=== PATIENT | male | born 1960 | race Caucasian/White ===

== ENCOUNTER → 2019-05-13 13:47 | Outpatient (CLI) | payer BC, SELFPAY ==
[2019-05-13 14:34] LABS: Basophils % 0.6 % (0.1-2.0); Eosinophils # 0.1 K/mm3 (0.0-0.4); Eosinophils % 1.1 % (0.1-12.0); Hematocrit 37.3 % (42.0-52.0); Hemoglobin 11.8 g/dL (14.1-18.0); Lymphocytes # 0.5 K/mm3 (0.7-4.5); Lymphocytes % 8.1 % (10-50); Mean Corpuscular HGB Conc 31.7 g/dL (31.8-35.4); Mean Corpuscular Hemoglobin 33.4 pg (27.0-31.2); Mean Corpuscular Volume 105.4 fl (80-94); Mean Platelet Volume 9.5 fl (7.4-10.4); Monocytes # 0.4 K/mm3 (0.1-1.0); Monocytes % 5.8 % (1.7-9.3); Neutrophils # 5.4 K/mm3 (1.8-7.8); Neutrophils % 84.5 % (37.0-80.0); Platelet Count 134 K/mm3 (142-424); Red Blood Count 3.54 M/mm3 (4.60-6.20); Red Cell Distribution Width 15.5 % (11.5-17.5); White Blood Count 6.4 K/mm3 (4.8-10.8)
[2019-05-13 14:58] LABS: Alanine Aminotransferase 140 U/L (12-78); Albumin Level 3.1 gm/dL (3.4-5.0); Albumin/Globulin Ratio 1.1 (1.1-1.8); Alkaline Phosphatase 469 U/L (46-116); Anion Gap 17.1 mEq/L (5-15); Aspartate Amino Transferase 43 U/L (15-37); Blood Urea Nitrogen 11 mg/dL (7-18); Calcium 8.6 mg/dL (8.5-10.1); Carbon Dioxide 25 mmol/L (21.0-32.0); Chloride 89 mmol/L (98-107); Chol/HDL Ratio 16.9 (1-3.5); Cholesterol 254 mg/dL (140-200); Creatinine,Serum 1.21 mg/dL (0.70-1.30); Estimated Glomerular Filt Rate 62 ml/min (>60); Free T4 (Free Thyroxine) 1.07 ng/dl (0.76-1.46); GFR (African American) 75 ML/MIN (>60); Globulin 2.7 gm/dl (1.3-3.2); HDL Cholesterol 15 mg/dL (27-67); Potassium 4.1 mmoL/L (3.5-5.1); Sodium 127 mmol/L (136-145); Thyroid Stimulating Hormone 3.88 uIU/ml (0.358-3.740); Total Protein,Serum 5.8 gm/dL (6.4-8.2)
[2019-05-13 15:02] LABS: Triglycerides 1125 mg/dL (30-200)
[2019-05-13 15:04] LABS: Glucose 639 mg/dL (74-106)
[2019-05-13 15:53] LABS: Hemoglobin A1C 13.3 % (0.0-7.0)
[2019-05-13 15:56] LABS: Lipase 40 u/L (73-393)
[2019-05-15 07:19] LABS: Vitamin D 25 Hydroxy 17.9 ng/mL (30.0-100.0)
[2019-05-15 08:14] LABS: Hep A Ab, IgM Negative (Negative); Hep A Ab, Total Negative (Negative); Hep B Core Ab, Total Negative (Negative)
[2019-05-15 11:53] LABS: Hep B Surface Ab, Qual Non Reactive (.); Hepatitis B Surface Antigen Negative (Negative); PSA, Free 0.07 ng/mL; Prostate Specific Ag 0.3 ng/mL (0.0-4.0)
== END ==
PROVIDERS: Visit Provider Emergency Medicine
DX: E11.9 Type 2 diabetes mellitus without complications (principal); J44.9 Chronic obstructive pulmonary disease, unspecified; K85.90 Acute pancreatitis without necrosis or infection, unspecified; K86.3 Pseudocyst of pancreas; R60.0 Localized edema; I10 Essential (primary) hypertension; R74.8 Abnormal levels of other serum enzymes; Z79.84 Long term (current) use of oral hypoglycemic drugs
CPT/HCPCS: 80053; 80061; 82652; 83036; 83690; 84153; 84154; 84439; 84443; 85025; 86704; 86706; 86708; 87340

== ENCOUNTER → 2019-05-28 12:07 | Outpatient (CLI) | payer BC, SELFPAY ==
[2019-05-28 13:00] VITALS: PULSE 68; PULSE 70
== END ==
PROVIDERS: PCP Emergency Medicine; Visit Provider Emergency Medicine
DX: J44.9 Chronic obstructive pulmonary disease, unspecified (principal)
CPT/HCPCS: 94060; 94618; 94640; 94726; 94729

== ENCOUNTER → 2019-05-29 14:42 | Outpatient (CLI) | payer BC, SELFPAY ==
--- NOTE | 2019-05-29 14:49 | CA_ITS ---
APPROVED REPORT EXAM: Comprehensive 2D, Doppler, and color-flow Echocardiogram Product Development Engineer: Kim Alfonso RDCS Ht: 5 ft 10 in Wt: 113lbs BSA: 1.64 BP: 106/66 mmHg Indications: Murmur, Diabetes,Smoker,GERD 2D Dimensions LVOT 1.80 cm (M/F) 1.5-2.5 M-Mode Dimensions RVDd 1.90 cm (0.9-2.6) LA Diam 1.60 cm (1.9-4.0) LVDd 4.90 cm (3.5-5.7) Ao Diam 3.60 cm (2.0-3.7) LVDs 3.60 cm (3.5-5.7) AV Cusp 2.20 cm (1.5-2.6) IVSd 0.60 cm (0.6-1.1) PWd 0.60 cm (0.6-1.1) EF (Teich) 51.90% FS 26.50% EDV (Teich) 113.00 mL ESV (Teich) 54.40 mL LV Diastology E/A Ratio 1.1 MED E' 10.10 (< 7 cm/sec) E'/MED E' Ratio 5.80 (>14) LAT E' 13.20 (<10 cm/sec) E/LAT E' Ratio 4.40 (>14) Mitral Valve MV E Max Paddy. 58.70 (40-130 cm/s) MV A Velocity 54.80 (40-130 cm/s) E/A Ratio 1.10 Tricuspid Valve TR P. Velocity 266.00 cm/s RAP Estimate 10.00 mmHg RVSP 38.00 mmHg Left Ventricle Left atrium is normal size, left ventricle is normal size, there is no concentric left ventricular hypertrophy, visually estimated ejection fraction 55% with no regional wall motion abnormality, diastolic parameters are within normal range. Right Ventricle Right atrium and right ventricular normal size and contractility. Aortic Valve Aortic valve is grossly normal. There is no aortic stenosis aortic insufficiency. Mitral Valve Mitral valve is grossly normal, there is no mitral stenosis, there is mild mitral regurgitation. Tricuspid Valve Tricuspid valve is grossly normal, there is no tricuspid stenosis, there is mild tricuspid regurgitation, tricuspid regurgitation jet velocity is inadequate for calculation of the right ventricular systolic pressure. Pulmonic Valve Pulmonic valve is poorly visualized. Great Vessels Aortic root is normal size. Pericardium No significant pericardial effusion noted. Conclusion 1. Normal left ventricular size, preserved left ventricular systolic function, visually estimated ejection fraction 55% with no regional wall motion abnormality. Diastolic parameters are within normal range. 2. Mild mitral and tricuspid regurgitation 3. No significant pericardial effusion noted. Electronically signed by : Rosales Nj, 05/30/2019 15:09:52
--- NOTE | 2019-05-29 15:13 | XR_ITS ---
PROCEDURE: XR CHEST 2V CLINICAL HISTORY: COPD COPD, smoker, shortness of breath COMPARISON: No exams were available for comparison FINDINGS: The cardiomediastinal silhouette and pulmonary vascularity are within normal limits. There is mild hyperinflation. Calcified granuloma is present in the right middle lobe. No lobar consolidation or collapse. No acute bony findings. IMPRESSION: Mild hyperinflation otherwise negative Dictated by: Kwan Frankel MD 05/29/2019 17:29 Electronically signed by Kwan Frankel MD in [place] 05/29/2019 17:29
== END ==
PROVIDERS: PCP Emergency Medicine; Visit Provider Emergency Medicine
DX: R01.1 Cardiac murmur, unspecified (principal); J44.9 Chronic obstructive pulmonary disease, unspecified
CPT/HCPCS: 71046; 93306

== ENCOUNTER → 2019-06-11 13:32 | Outpatient (CLI) | payer BC, SELFPAY ==
[2019-06-11 14:17] LABS: Alanine Aminotransferase 130 U/L (12-78); Albumin Level 3.7 gm/dL (3.4-5.0); Albumin/Globulin Ratio 1.4 (1.1-1.8); Alkaline Phosphatase 325 U/L (46-116); Anion Gap 13.4 mEq/L (5-15); Aspartate Amino Transferase 72 U/L (15-37); Bilirubin,Total 1.1 mg/dL (0.2-1.0); Blood Urea Nitrogen 6 mg/dL (7-18); Calcium 9.5 mg/dL (8.5-10.1); Carbon Dioxide 29 mmol/L (21.0-32.0); Chloride 97 mmol/L (98-107); Creatinine,Serum 1.06 mg/dL (0.70-1.30); Estimated Glomerular Filt Rate 72 ml/min (>60); GFR (African American) 87 ML/MIN (>60); Globulin 2.6 gm/dl (1.3-3.2); Glucose 382 mg/dL (74-106); Potassium 5.4 mmoL/L (3.5-5.1); Sodium 134 mmol/L (136-145); Total Protein,Serum 6.3 gm/dL (6.4-8.2)
== END ==
PROVIDERS: Visit Provider Emergency Medicine
DX: E11.9 Type 2 diabetes mellitus without complications (principal); Z79.84 Long term (current) use of oral hypoglycemic drugs
CPT/HCPCS: 80053

== ENCOUNTER → 2019-06-13 09:09 | Outpatient (CLI) | payer BC, SELFPAY ==
[2019-06-13 10:31] LABS: Alanine Aminotransferase 119 U/L (12-78); Albumin Level 3.2 gm/dL (3.4-5.0); Albumin/Globulin Ratio 1.3 (1.1-1.8); Alkaline Phosphatase 251 U/L (46-116); Anion Gap 13.1 mEq/L (5-15); Aspartate Amino Transferase 67 U/L (15-37); Bilirubin,Total 0.5 mg/dL (0.2-1.0); Blood Urea Nitrogen 6 mg/dL (7-18); Calcium 8.7 mg/dL (8.5-10.1); Carbon Dioxide 27 mmol/L (21.0-32.0); Chloride 97 mmol/L (98-107); Creatinine,Serum 0.89 mg/dL (0.70-1.30); Estimated Glomerular Filt Rate 88 ml/min (>60); GFR (African American) 107 ML/MIN (>60); Globulin 2.5 gm/dl (1.3-3.2); Glucose 357 mg/dL (74-106); Potassium 4.1 mmoL/L (3.5-5.1); Sodium 133 mmol/L (136-145); Total Protein,Serum 5.7 gm/dL (6.4-8.2)
== END ==
PROVIDERS: Visit Provider Nurse Practitioner Family
DX: R74.8 Abnormal levels of other serum enzymes (principal)
CPT/HCPCS: 36415; 80053; 87522

== ENCOUNTER → 2019-06-26 08:55 | Outpatient (CLI) | payer BC, SELFPAY | PROVIDERS: PCP Emergency Medicine; Visit Provider Emergency Medicine | DX: Z71.3 Dietary counseling and surveillance (principal); E11.9 Type 2 diabetes mellitus without complications | CPT/HCPCS: 97802 ==

== ENCOUNTER → 2019-07-02 13:56 | Outpatient (CLI) | payer BC, SELFPAY | PROVIDERS: Visit Provider Nurse Practitioner Family | DX: E11.9 Type 2 diabetes mellitus without complications (principal); Z79.84 Long term (current) use of oral hypoglycemic drugs | CPT/HCPCS: 84681 ==

== ENCOUNTER → 2019-09-26 13:44 | Outpatient (CLI) | payer BC, SELFPAY ==
[2019-09-26 15:19] LABS: Basophils # 0.1 K/mm3 (0-0.2); Basophils % 0.8 % (0.1-2.0); Eosinophils # 0.2 K/mm3 (0.0-0.4); Eosinophils % 1.9 % (0.1-12.0); Hematocrit 45.1 % (42.0-52.0); Lymphocytes % 12.4 % (10-50); Mean Corpuscular HGB Conc 31.1 g/dL (31.8-35.4); Mean Corpuscular Hemoglobin 31.1 pg (27.0-31.2); Mean Corpuscular Volume 99.9 fl (80-94); Mean Platelet Volume 10.1 fl (7.4-10.4); Monocytes # 0.5 K/mm3 (0.1-1.0); Monocytes % 5.9 % (1.7-9.3); Neutrophils # 6.1 K/mm3 (1.8-7.8); Neutrophils % 79.1 % (37.0-80.0); Platelet Count 167 K/mm3 (142-424); Red Blood Count 4.51 M/mm3 (4.60-6.20); Red Cell Distribution Width 13.5 % (11.5-17.5); White Blood Count 7.7 K/mm3 (4.8-10.8)
[2019-09-26 15:48] LABS: Alanine Aminotransferase 72 U/L (12-78); Albumin Level 4.2 gm/dL (3.4-5.0); Albumin/Globulin Ratio 1.7 (1.1-1.8); Alkaline Phosphatase 203 U/L (46-116); Anion Gap 11.8 mEq/L (5-15); Aspartate Amino Transferase 26 U/L (15-37); Bilirubin,Total 0.4 mg/dL (0.2-1.0); Blood Urea Nitrogen 10 mg/dL (7-18); Calcium 9.6 mg/dL (8.5-10.1); Carbon Dioxide 29 mmol/L (21.0-32.0); Chloride 102 mmol/L (98-107); Chol/HDL Ratio 4.5 (1-3.5); Cholesterol 141 mg/dL (140-200); Creatinine,Serum 0.93 mg/dL (0.70-1.30); Estimated Glomerular Filt Rate 84 ml/min (>60); GFR (African American) 101 ML/MIN (>60); Globulin 2.5 gm/dl (1.3-3.2); Glucose 261 mg/dL (74-106); HDL Cholesterol 31 mg/dL (27-67); Hemoglobin A1C 11.4 % (0.0-7.0); LDL Cholesterol 68 mg/dL (0-130); Potassium 4.8 mmoL/L (3.5-5.1); Sodium 138 mmol/L (136-145); T4 (Thyroxine) 6.5 ug/dl (4.7-13.3); Thyroid Stimulating Hormone 1.33 uIU/ml (0.358-3.740); Total Protein,Serum 6.7 gm/dL (6.4-8.2); Triglycerides 210 mg/dL (30-200); VLDL Cholesterol 42 mg/dL (0-40)
[2019-09-27 09:10] LABS: Creatinine, Urine 134.8 mg/dL (Not Estab.)
[2019-09-27 09:46] LABS: Vitamin D 25 Hydroxy 13.5 ng/mL (30.0-100.0)
== END ==
PROVIDERS: Visit Provider Nurse Practitioner Family
DX: E11.9 Type 2 diabetes mellitus without complications (principal); E55.9 Vitamin D deficiency, unspecified; Z79.899 Other long term (current) drug therapy; Z79.4 Long term (current) use of insulin
CPT/HCPCS: 80053; 80061; 82043; 82570; 82652; 83036; 84436; 84443; 85025

== ENCOUNTER → 2020-01-13 11:35 | Outpatient (CLI) | payer BC, SELFPAY ==
[2020-01-13 11:42] LABS: Adenovirus,PCR Not Detected (NotDetected); Bordetella Pertussis Not Detected (NotDetected); Chlamydophila Pneumoniae, PCR Not Detected (NotDetected); Coronavirus 19, PCR Not Detected (NotDetected); Coronavirus 229E Not Detected (NotDetected); Coronavirus NL63 Not Detected (NotDetected); Coronavirus OC43 Not Detected (NotDetected); Coronovirus HKU1,PCR Not Detected (NotDetected); Human Metapneumovirus Not Detected (NotDetected); Influenza A, PCR Not Detected (NotDetected); Influenza AH1, 2009 Not Detected (NotDetected); Influenza AH1, PCR Not Detected (NotDetected); Influenza AH3,PCR Not Detected (NotDetected); Influenza B, PCR Not Detected (NotDetected); Mycoplasma Pneumoniae, PCR Not Detected (NotDected); Parainfluenza 1, PCR Not Detected (NotDetected); Parainfluenza 2, PCR Not Detected (NotDetected); Parainfluenza 3, PCR Not Detected (NotDetected); Parainfluenza 4, PCR Not Detected (NotDetected); Respiratory Syncytial Virus Not Detected (NotDetected); Rhinovirus/Enterovirus Not Detected (NotDetected)
== END ==
PROVIDERS: Visit Provider Surgery
DX: Z01.818 Encounter for other preprocedural examination (principal)
CPT/HCPCS: 87581; 87633; 87798

== ENCOUNTER 2020-01-15 08:20 | Day surgery (SDC) | payer BC, SELFPAY ==
--- NOTE | 2020-01-12 09:44 | SUR.PREOP ---
01/12/2020 @ 0945--PHONE CALL MADE TO PATIENT. PATIENT UNDERSTANDS THAT LAB WORK AND COVID TESTING NEEDS TO BE COMPLETED @ 1100 ON 01/13/2020. PATIENT UNDERSTANDS IF LAB WORK AND COVID-19 TESTS ARE NOT COMPLETED BY 12PM ON THAT DATE, THE SURGERY SCHEDULED WILL BE CANCELLED AND RESCHEDULED FOR ANOTHER TIME.
[2020-01-15] VITALS (12 sets, daily range): BP systolic 112–207; BP diastolic 70–119; PULSE 60–89; RESP 18; TEMP 36.2–36.9; O2SAT 97–99; BMI 22.0
[2020-01-15 09:08] LABS: POC Glucose,Bedside 267 (70-110)
--- NOTE | 2020-01-15 10:18 | P.PCN_ITS ---
- Procedure: Date: 01/15/20 Procedure Performed:: Colonoscopy with polypectomy Indications:: Screening Weight loss (resolved) History of intermittent diarrhea Performing Provider:: Lee Mora MD Referring Provider:: . Sedation:: Monitored anesthesia care Procedure:: After informed consent was obtained the patient was taken to the endoscopy suite. Sedation ensued after the patient was transferred to the left lateral decubitus position. Pulse, blood pressure, and oxygen saturation were monitored throughout the procedure. Digital rectal exam revealed no significant abnormal ity. The colonoscope was placed in position. The entire colon was evaluated. The colonoscope was carefully removed and the patient was transferred to recovery in stable condition. Please see findings and specimens below for detail. Findings:: Bowel preparation moderate Significant lack of relaxation with particular effect on sigmoid colon Multiple complex polyps (see specimens) Hemorrhoidal cushions Specimens:: Pedunculated cecal polyp (cold snare) Right colon polyp Complex lobulated 8 mm sessile polyp of the distal right colon (cold snare) Recommendations:: Timing of repeat colonoscopy is pending pathology but will likely be in 1-2 years secondary to size/nature/number of polyps, moderate bowel preparation, and significant lack of relaxation. Complications:: No immediate Estimated blood obtained (mL): 1
--- NOTE | 2020-01-15 11:29 | HMH.ANESCL ---
[facility] Anesthesia Checklist - Patient Identification Patient Identification: Arm Band - Structural Data Admitted From: Home Planned Operative Procedure/s: colonoscopy Consent for Planned Operative Procedure(s) Verified: Yes Verified Documents: Surgical Consent, History and Physical - NPO Status Verified Time NPO: 00:00 - Additional verifications Anesthesia Reactions: No - Airway Assessment C-Spine Mobility Assessed: Yes TMJ Mobility Assessed: Yes Dentition: Edentulous - Neurological Assessment Level of Consciousness: Awake, Alert - Anesthesia Plan Anesthesia Risk discussed: Yes Anesthesia Plan: Verified ASA Class: III Anesthesia Type: MAC [facility] History I have reviewed the patient's past medical history: Yes Medical History: Reports:: Diabetes Mellitus Type 2, Gastroesophageal Reflux Disease(GERD), Hyperlipidemia, Hypertension Denies:: Cancer, Diabetes Mellitus Type 1, Internal Pacemaker, MRSA, Seizures *Have you ever received a pneumonia vaccine?: Yes *Have you received a flu vaccine this season?: Yes Other Medical History: Reports: Other Anesthesia experience/problems:: nac Other Surgeries: Yes: Cardiac Catheterization, Cholecystectomy, Colonoscopy, Hernia Repair, Other. No: Pacemaker Amputation: No Fractures: No - *Social History Smoking Status: Current every day smoker Tobacco Type: cigarettes # Packs/Day (cigarettes): 1 Alcohol Intake: never Alcohol Intake Frequency:: 3 or more drinks per day Substance Use Type: denies use *Occupational Status:: disabled Housing: house Household Members: friend(s) *Travel in the last 8 weeks: None Family Hx:: Cancer, Heart Attack, Coronary Artery Disease, Diabetes, Hypertension, Stroke
--- NOTE | 2020-01-15 12:07 | SUR.PHASEII ---
Notified Eric Ricardo CRNA that BP has decreased to pre-op level, ok with discharge. pt smiling and cooperlexvie, no C/O. Instructed to follow up with [facility] for BP check and to take meds when gets home. Pt verbalized understanding.
== END 2020-01-15 12:09 | disposition home or self-care (01) ==
LOC: OUTP 08:21
PROVIDERS: PCP Nurse Practitioner Family; Visit Provider Surgery
PROC: 0DJD8ZZ Inspection of Lower Intestinal Tract, Via Natural or Artificial Opening Endoscopic (ICD-10-PCS; CPT 45385; principal; 2020-01-15 09:30)
DX: D12.2 Benign neoplasm of ascending colon (principal); D12.0 Benign neoplasm of cecum; Z12.11 Encounter for screening for malignant neoplasm of colon; E11.9 Type 2 diabetes mellitus without complications; Z79.4 Long term (current) use of insulin; Z79.899 Other long term (current) drug therapy; Z88.8 Allergy status to other drugs, medicaments and biological substances
CPT/HCPCS: 45385; 82962

== ENCOUNTER → 2020-01-29 14:40 | Outpatient (CLI) | payer BC, SELFPAY ==
[2020-01-29 15:04] LABS: Basophils # 0.1 K/mm3 (0-0.2); Basophils % 1.2 % (0.1-2.0); Eosinophils % 0.3 % (0.1-12.0); Hematocrit 45.1 % (42.0-52.0); Hemoglobin 15.2 g/dL (14.1-18.0); Lymphocytes # 0.8 K/mm3 (0.7-4.5); Lymphocytes % 10.2 % (10-50); Mean Corpuscular HGB Conc 33.6 g/dL (31.8-35.4); Mean Corpuscular Hemoglobin 32.9 pg (27.0-31.2); Mean Corpuscular Volume 97.8 fl (80-94); Mean Platelet Volume 8.9 fl (7.4-10.4); Monocytes # 0.4 K/mm3 (0.1-1.0); Monocytes % 5.2 % (1.7-9.3); Neutrophils # 6.6 K/mm3 (1.8-7.8); Neutrophils % 83.1 % (37.0-80.0); Platelet Count 160 K/mm3 (142-424); Red Blood Count 4.61 M/mm3 (4.60-6.20); Red Cell Distribution Width 13.4 % (11.5-17.5); White Blood Count 7.9 K/mm3 (4.8-10.8)
[2020-01-29 15:13] LABS: Chloride 104 mmol/L (98-107); Sodium 138 mmol/L (136-145)
[2020-01-29 15:14] LABS: Potassium 4.4 mmoL/L (3.5-5.1)
[2020-01-29 15:16] LABS: Alanine Aminotransferase 41 U/L (12-78); Albumin Level 4.3 g/dl (3.5-5.0); Albumin/Globulin Ratio 1.7 (1.1-1.8); Alkaline Phosphatase 204 U/L (38-126); Anion Gap 13.4 mEq/L (5-15); Aspartate Amino Transferase 47 U/L (17-59); Blood Urea Nitrogen 10 mg/dl (9-20); Calcium 9.9 mg/dl (8.4-10.2); Carbon Dioxide 25 mmol/L (22.0-30.0); Cholesterol 105 mg/dl (140-200); Estimated Glomerular Filt Rate 87 ml/min (>60); GFR (African American) 105 ML/MIN (>60); Globulin 2.5 g/dL (1.3-3.2); Glucose 187 mg/dl (74-100); Total Protein,Serum 6.8 g/dl (6.3-8.2); Triglycerides 258 mg/dl (30-150); VLDL Cholesterol 52 mg/dL (0-40)
[2020-01-29 15:17] LABS: Chol/HDL Ratio 2.5 (1-3.5); HDL Cholesterol 42 mg/dl (40-60)
[2020-01-29 15:27] LABS: Direct LDL Cholesterol 50.51 mg/dL (100-129)
[2020-01-29 15:36] LABS: T4 (Thyroxine) 4.7 ug/dl (5.53-11.0)
[2020-01-29 15:44] LABS: Hemoglobin A1C 8.1 % (4.0-6.0)
[2020-01-29 15:49] LABS: Thyroid Stimulating Hormone 2.44 uIU/mL (0.465-4.68)
[2020-01-31 11:12] LABS: Vitamin D 25 Hydroxy 32.7 ng/mL (30.0-100.0)
== END ==
PROVIDERS: Visit Provider Nurse Practitioner Family
DX: I10 Essential (primary) hypertension (principal); E11.9 Type 2 diabetes mellitus without complications; Z79.4 Long term (current) use of insulin
CPT/HCPCS: 80053; 80061; 82652; 83036; 84436; 84443; 85025

== ENCOUNTER → 2020-02-06 12:02 | Outpatient (CLI) | payer BC, SELFPAY ==
--- NOTE | 2020-02-06 12:07 | XR_ITS ---
PROCEDURE: XR CHEST 2V CLINICAL HISTORY: elevated alk phos Smoker COMPARISON: XR CHEST 2V from 05/29/2019 FINDINGS: Cardiac size is upper limits of normal. No evidence of CHF. Calcified granuloma is present in the right lower lung zone. No lobar consolidation or collapse. No acute bony abnormalities. IMPRESSION: No acute findings. Dictated by: Kwan Frankel MD 02/06/2020 14:44 Electronically signed by Kwan Frankel MD in [place] 02/06/2020 14:44
== END ==
PROVIDERS: PCP Nurse Practitioner Family; Visit Provider Nurse Practitioner Family
DX: R74.8 Abnormal levels of other serum enzymes (principal)
CPT/HCPCS: 71046

== ENCOUNTER → 2021-02-04 13:42 | Outpatient (CLI) | payer BC, SELFPAY ==
[2021-02-04 13:54] LABS: Basophils % 0.9 % (0.1-2.0); Eosinophils % 0.6 % (0.1-12.0); Hematocrit 41.8 % (42.0-52.0); Hemoglobin 13.7 g/dL (14.1-18.0); Lymphocytes # 0.8 K/mm3 (0.7-4.5); Lymphocytes % 17.6 % (10-50); Mean Corpuscular HGB Conc 32.9 g/dL (31.8-35.4); Mean Corpuscular Hemoglobin 33.8 pg (27.0-31.2); Mean Corpuscular Volume 102.7 fl (80-94); Mean Platelet Volume 10.4 fl (7.4-10.4); Monocytes # 0.3 K/mm3 (0.1-1.0); Monocytes % 7.1 % (1.7-9.3); Neutrophils # 3.3 K/mm3 (1.8-7.8); Neutrophils % 73.9 % (37.0-80.0); Platelet Count 111 K/mm3 (142-424); Red Blood Count 4.07 M/mm3 (4.60-6.20); White Blood Count 4.4 K/mm3 (4.8-10.8)
[2021-02-04 14:06] LABS: Chloride 95 mmol/L (98-107); Sodium 134 mmol/L (136-145)
[2021-02-04 14:07] LABS: Potassium 4.5 mmoL/L (3.5-5.1)
[2021-02-04 14:09] LABS: Blood Urea Nitrogen 4 mg/dl (9-20); Estimated Glomerular Filt Rate 87 ml/min (>60); GFR (African American) 105 ML/MIN (>60)
[2021-02-04 14:10] LABS: Anion Gap 16.5 mEq/L (5-15); Carbon Dioxide 27 mmol/L (22.0-30.0)
[2021-02-04 14:19] LABS: Glucose 577 mg/dl (74-100)
[2021-02-04 14:58] LABS: Prostate Specific Ag Screen 0.7 ng/ml (0.0-4.0)
[2021-02-06 08:10] LABS: Testosterone,Total 407 ng/dL (264-916)
== END ==
PROVIDERS: Visit Provider Emergency Medicine
DX: E11.9 Type 2 diabetes mellitus without complications (principal); Z79.4 Long term (current) use of insulin; Z12.5 Encounter for screening for malignant neoplasm of prostate
CPT/HCPCS: 80048; 83036; 84403; 85025; G0103

== ENCOUNTER → 2021-12-15 07:35 | Outpatient (CLI) | payer BC, SELFPAY ==
--- NOTE | 2021-12-15 07:54 | XR_ITS ---
FINAL REPORT CLINICAL HISTORY: bilat knee pain FINDINGS: 3 views of the right knee were obtained. There is no acute fracture or dislocation. There is minimal sharpening of the tibial spines consistent with mild osteoarthritis. The joint spaces are preserved. There is no soft tissue abnormality. IMPRESSION: Mild osteoarthritis. Reviewed, Interpreted and Dictated by Anthony Wells MD Transcribed by Silvino Peters Authenticated by Anthony Wells MD on 12/15/2021 08:48:03 AM [facility]
--- NOTE | 2021-12-15 07:54 | XR_ITS ---
FINAL REPORT CLINICAL HISTORY: bilat knee pain FINDINGS: 3 views of the left knee were obtained. There is no acute fracture or dislocation. There is moderate sharpening of the tibial spines. There is mild narrowing of the medial compartment joint space. There is an ossific protuberance of the inferior aspect of the patella which may be due to sequela of old trauma or an exostosis. There is an ossific protuberance along the medial aspect of the medial tibial metaphysis. This measures 1.8 cm and is probably due to an exostosis. There is no soft tissue abnormality. 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 Reviewed, Interpreted and Dictated by Anthony Wells MD Transcribed by Silvino Peters Authenticated by Anthony Wells MD on 12/15/2021 10:30:30 AM [facility]
--- NOTE | 2021-12-15 08:35 | CT_ITS ---
FINAL REPORT TECHNIQUE: Axial images through the abdomen and pelvis were performed without contrast. This study was performed with techniques to keep radiation doses as low as reasonably achievable, (ALARA). Individualized dose reduction techniques using automated exposure control or adjustment of mA and/or kV according to the patient's size were employed. CLINICAL HISTORY: abd pain FINDINGS: Abdomen: There is calcified granuloma in the right lung base. The liver parenchyma is homogeneous. The gallbladder is absent. The spleen and adrenals are unremarkable. The pancreas has an abnormal appearance with extensive calcifications throughout. The pancreas is atrophic and the pancreatic duct is enlarged measuring up to 7 mm. There is a small nonobstructing stone in the right renal collecting system. Pelvis: The urinary bladder is unremarkable. The appendix is not visualized. There are multiple fluid-filled loops of small bowel. The bowel loops measure up to the upper limits of normal. There is a large amount of stool throughout the colon. The urinary bladder is distended. There is no pelvic mass or inflammation. IMPRESSION: Constipation. Nonobstructing right kidney stone. Changes of chronic pancreatitis. Urinary bladder distension. Reviewed, Interpreted and Dictated by Anthony Wells MD Transcribed by Eli Greco Authenticated by Anthony Wells MD on 12/15/2021 10:30:24 AM [facility]
== END ==
PROVIDERS: PCP Nurse Practitioner Family; Visit Provider Nurse Practitioner Family
DX: M25.561 Pain in right knee (principal); M25.562 Pain in left knee; R10.9 Unspecified abdominal pain
CPT/HCPCS: 73562; 74176

== ENCOUNTER → 2021-12-15 11:44 | Outpatient (CLI) | payer BC, SELFPAY ==
[2021-12-14 18:04] LABS: Basophils # 0.1 K/mm3 (0-0.2); Basophils % 0.9 % (0.1-2.0); Eosinophils % 0.6 % (0.1-12.0); Hematocrit 36.1 % (42.0-52.0); Hemoglobin 11.4 g/dL (14.1-18.0); Lymphocytes # 0.6 K/mm3 (0.7-4.5); Lymphocytes % 12.4 % (10-50); Mean Corpuscular HGB Conc 31.6 g/dL (31.8-35.4); Mean Corpuscular Hemoglobin 32.7 pg (27.0-31.2); Mean Corpuscular Volume 103.6 fl (80-94); Mean Platelet Volume 9.2 fl (7.4-10.4); Monocytes # 0.3 K/mm3 (0.1-1.0); Monocytes % 5.5 % (1.7-9.3); Neutrophils # 4.2 K/mm3 (1.8-7.8); Neutrophils % 80.5 % (37.0-80.0); Platelet Count 125 K/mm3 (142-424); Red Blood Count 3.49 M/mm3 (4.60-6.20); Red Cell Distribution Width 13.6 % (11.5-17.5); White Blood Count 5.2 K/mm3 (4.8-10.8)
[2021-12-14 18:10] LABS: Alanine Aminotransferase 155 U/L (12-78); Albumin Level 3.1 g/dl (3.5-5.0); Albumin/Globulin Ratio 1.4 (1.1-1.8); Alkaline Phosphatase 312 U/L (38-126); Amylase 47 U/L (30-110); Anion Gap 10.2 mEq/L (5-15); Aspartate Amino Transferase 124 U/L (17-59); Blood Urea Nitrogen 10 mg/dl (9-20); Calcium 7.9 mg/dl (8.4-10.2); Carbon Dioxide 30 mmol/L (22.0-30.0); Chloride 89 mmol/L (98-107); Chol/HDL Ratio 3.4 (1-3.5); Cholesterol 62 mg/dl (140-200); Estimated Glomerular Filt Rate 138 ml/min (>60); GFR (African American) 167 ML/MIN (>60); Globulin 2.2 g/dL (1.3-3.2); HDL Cholesterol 18 mg/dl (40-60); Potassium 4.2 mmoL/L (3.5-5.1); Sodium 125 mmol/L (136-145); Total Protein,Serum 5.3 g/dl (6.3-8.2); Triglycerides 187 mg/dl (30-150); VLDL Cholesterol 37 mg/dL (0-40)
[2021-12-14 18:26] LABS: 25-OH Vitamin D, Total < 12.8 ng/mL (30-100)
[2021-12-14 18:27] LABS: T4 (Thyroxine) 5.3 ug/dl (5.53-11.0)
[2021-12-14 18:33] LABS: Direct LDL Cholesterol < 30.00 mg/dL (100-129); Glucose 493 mg/dl (74-100); Lipase < 10 U/L (23-300)
[2021-12-14 18:41] LABS: Thyroid Stimulating Hormone 2.09 uIU/mL (0.465-4.68)
[2021-12-14 19:27] LABS: Hemoglobin A1C > 14.0 % (4.0-6.0)
[2021-12-16 10:32] LABS: C-Peptide 0.4 ng/mL (1.1-4.4)
== END ==
PROVIDERS: PCP Nurse Practitioner Family; Visit Provider Nurse Practitioner Family
DX: E10.9 Type 1 diabetes mellitus without complications (principal); R10.9 Unspecified abdominal pain; E55.9 Vitamin D deficiency, unspecified; Z79.4 Long term (current) use of insulin; Z79.899 Other long term (current) drug therapy
CPT/HCPCS: 80053; 80061; 82043; 82150; 82306; 83036; 83690; 84436; 84443; 84681; 85025

== ENCOUNTER → 2021-12-19 12:41 | Outpatient (CLI) | payer BC, SELFPAY ==
[2021-12-19 14:02] LABS: Basophils # 0.1 K/mm3 (0-0.2); Basophils % 1.9 % (0.1-2.0); Eosinophils % 0.4 % (0.1-12.0); Hematocrit 37.3 % (42.0-52.0); Hemoglobin 11.8 g/dL (14.1-18.0); Lymphocytes # 0.5 K/mm3 (0.7-4.5); Mean Corpuscular HGB Conc 31.7 g/dL (31.8-35.4); Mean Corpuscular Hemoglobin 32.6 pg (27.0-31.2); Mean Corpuscular Volume 102.6 fl (80-94); Mean Platelet Volume 9.3 fl (7.4-10.4); Monocytes # 0.3 K/mm3 (0.1-1.0); Monocytes % 5.4 % (1.7-9.3); Neutrophils # 4.9 K/mm3 (1.8-7.8); Neutrophils % 83.3 % (37.0-80.0); Platelet Count 114 K/mm3 (142-424); Red Blood Count 3.64 M/mm3 (4.60-6.20); Red Cell Distribution Width 14.3 % (11.5-17.5); White Blood Count 5.9 K/mm3 (4.8-10.8)
[2021-12-19 14:49] LABS: Anion Gap 10.1 mEq/L (5-15); Blood Urea Nitrogen 9 mg/dl (9-20); Calcium 8.5 mg/dl (8.4-10.2); Carbon Dioxide 35 mmol/L (22.0-30.0); Chloride 92 mmol/L (98-107); Estimated Glomerular Filt Rate 138 ml/min (>60); GFR (African American) 167 ML/MIN (>60); Glucose 383 mg/dl (74-100); Potassium 5.1 mmoL/L (3.5-5.1); Sodium 132 mmol/L (136-145)
== END ==
PROVIDERS: PCP Nurse Practitioner Family; Visit Provider Physician Assistant
DX: Z01.812 Encounter for preprocedural laboratory examination (principal); Z11.52 Encounter for screening for COVID-19; R06.00 Dyspnea, unspecified; R07.9 Chest pain, unspecified; R20.0 Anesthesia of skin; R53.83 Other fatigue; R60.0 Localized edema
CPT/HCPCS: 36415; 80048; 85025; C9803; U0003; U0005

== ENCOUNTER 2021-12-20 09:01 | Day surgery (SDC) | payer BC, SELFPAY ==
[2021-12-20] VITALS (11 sets, daily range): BP systolic 108–159; BP diastolic 59–74; PULSE 58–81; RESP 18–20; TEMP 36.6; O2SAT 94–98; BMI 18.2
--- NOTE | 2021-12-20 | IR_ITS ---
APPROVED REPORT Patient Location: Outpatient PROCEDURES Left heart catheterization Left ventriculogram Selective coronary angiogram INDICATION High pretest likelihood for coronary artery disease, Class IV angina pectoris, Insulin requiring diabetes accompanied by an extensive tobacco usage. High pretest likelihood for three-vessel coronary artery disease Informed consent was obtained prior to the procedure. COMPLICATIONS None Estimated Blood Loss: Less than 10 mls TECHNIQUE One percent lidocaine used to anesthetize the right anterior aspect of the wrist. The right radial artery was accessed via the Seldinger technique. A 6 Greek sheath was placed in the right radial artery. 2.5 mg of verapamil, 800 mcg of nitroglycerin, 1mg Lidocaine and 5000 U Heparin were given through the arterial sheath. The papa catheter was also used to perform left heart catheterization, left ventriculogram and selective coronary angiogram. At the end of the procedure the sheath was removed good hemostasis was achieved using Traclet band, patient was transferred to the postop holding area in stable condition. ANGIOGRAPHIC RESULTS The left main artery Normal The left anterior descending artery Has mild proximal 20% stenosis The circumflex artery Dominant normal The right coronary artery Nondominant normal The BROCK ventriculogram reveals Normal 65% The left ventricular end-diastolic pressure 10 mmHg IMPRESSION Mild nonflow limiting coronary artery disease Normal ejection fraction Normal left ventricular Pressure PLAN 1. Continue with risk factor modification 2. Evaluation of noncardiac symptoms 3. Recommend CT of the chest with contrast Electronically signed by : Pavan Smiley MD 12/20/2021 12:04:50
== END 2021-12-20 15:00 | disposition home or self-care (01) ==
LOC: CATHLAB 09:03
PROVIDERS: PCP Nurse Practitioner Family; Visit Provider Internal Medicine
DX: I25.118 Atherosclerotic heart disease of native coronary artery with other forms of angina pectoris (principal); E11.9 Type 2 diabetes mellitus without complications; Z79.4 Long term (current) use of insulin; Z79.899 Other long term (current) drug therapy; F17.210 Nicotine dependence, cigarettes, uncomplicated; Z82.49 Family history of ischemic heart disease and other diseases of the circulatory system; I10 Essential (primary) hypertension
CPT/HCPCS: 93458; 99152; C1725; C1769; J1644; Q9966